=== PATIENT | male | born 1935 | race Caucasian/White ===

== ENCOUNTER 2018-08-24 08:34 | Day surgery (SDC) | payer MEDICARE ==
[2018-08-24] MEDS ORDERED: Sodium Chloride 0.9% 1,000 ML IV SCH (09:00)
[2018-08-24] MEDS ORDERED: Midazolam 1 MG/ML 2 ML SDV ONE (09:28)
[2018-08-24] MEDS ORDERED: Propofol 200 MG/20 ML SDV ONE (09:28)
[2018-08-24] MEDS ORDERED: fentaNYL 100 MCG/2 ML SDV ONE (09:28)
[2018-08-24] MEDS ORDERED: ceFAZolin 2 GM in Premix Bag 1 BAG IV ONE (09:30)
[2018-08-24 13:43] VITALS: BP 129/68
--- NOTE | 2018-08-31 09:01 | OR ---
DATE OF PROCEDURE: 08/24/2018 SURGEON: Mik Plaza MD PROCEDURE: Colonoscopy. FINDINGS: Descending colon polyp, approximately 8 mm, completely removed using snare. COMPLICATIONS: None. SCALEMAN: None. ANESTHETIC: MAC. PREOPERATIVE DIAGNOSIS: Screening colonoscopy. POSTOPERATIVE DIAGNOSIS: Screening colonoscopy. RISKS: Risks, benefits, alternatives, and limitations including, but not limited to infection, bleeding, and perforation were explained to the patient and wished to proceed. PROCEDURE IN DETAIL: The patient was placed in left lateral decubitus position. Digital rectal exam was performed without abnormality. Scope was introduced and advanced atraumatically to ileocecal valve. A photo was taken. Scope was brought back through the ascending, transverse, descending colon, and retroflexed. The aforementioned polyp was identified and completely removed. No abnormalities on retroflexion. The patient tolerated the procedure well. Mik Plaza MD /[id number]
== END 2018-08-24 11:35 | disposition home or self-care (01) ==
LOC: JP.SDS 08:34
PROVIDERS: ATTEND Surgery
DX: Z12.11 Encounter for screening for malignant neoplasm of colon (principal); K52.9 Noninfective gastroenteritis and colitis, unspecified; K63.89 Other specified diseases of intestine; I10 Essential (primary) hypertension; I25.10 Atherosclerotic heart disease of native coronary artery without angina pectoris; G47.33 Obstructive sleep apnea (adult) (pediatric); Z99.89 Dependence on other enabling machines and devices; Z95.0 Presence of cardiac pacemaker
CPT/HCPCS: 45385; 88305; J0690; J2250; J2704; J3010; J7030

== ENCOUNTER 2023-10-02 10:01 | Emergency (ER) | payer MEDICARE ==
[2023-10-02 10:14] VITALS: BP 127/61; PULSE 66
== END 2023-10-02 11:42 | disposition home or self-care (01) ==
LOC: JP.ED 10:01
DX: U07.1 COVID-19 (principal); E03.9 Hypothyroidism, unspecified; I10 Essential (primary) hypertension; I48.91 Unspecified atrial fibrillation; Z95.0 Presence of cardiac pacemaker; Z79.01 Long term (current) use of anticoagulants; Z79.899 Other long term (current) drug therapy; Z88.8 Allergy status to other drugs, medicaments and biological substances
CPT/HCPCS: 99283

== ENCOUNTER 2024-06-22 09:23 | Day surgery (SDC) | payer MEDICARE ==
[~2024-06-22 09:23] MED LIST: Dexamethasone 4 MG/ML SDV ONE; Glycopyrrolate 0.2 MG/ML 5 ML MDV ONE; Neostigmine Methylsulfate 10 MG/10 ML MDV ONE; Ondansetron 4 MG/2 ML SDV ONE; Propofol 200 MG/20 ML SDV ONE; Rocuronium 50 MG/5 ML Vial ONE; Succinylcholine 200 MG/10 ML MDV ONE; fentaNYL 250 MCG/5 ML SDV ONE
[2024-06-22] MEDS ORDERED: fentaNYL 100 MCG/2 ML SDV ONE ×2 (10:06→10:48)
[2024-06-22] MEDS ORDERED: Midazolam 1 MG/ML 2 ML SDV ONE (10:06)
[2024-06-22] MEDS ORDERED: Propofol 200 MG/20 ML SDV ONE (10:06)
[2024-06-22] MEDS: Metoprolol Tartrate 50 MG Tab PO STA (10:10)
[2024-06-22] MEDS: Lactated Ringers 1,000 ML IV SCH (10:13)
[2024-06-22] MEDS: metroNIDAZOLE/Normal Saline 500 MG in Premix Bag 1 BAG IV ONE (10:14)
[2024-06-22] MEDS ORDERED: Rocuronium 50 MG/5 ML Vial ONE (10:48)
[2024-06-22] MEDS: Bupivacaine 0.5%/EPINEPHrine 1:200,000 50 ML MDV ONE (10:50)
[2024-06-22] MEDS: ceFAZolin 2 GM in Premix Bag 1 BAG IV ONE (11:14)
[2024-06-22] MEDS ORDERED: Lactated Ringers 1,000 ML ONE (11:23)
[2024-06-22 14:36] VITALS: BP 120/60; PULSE 61
== END 2024-06-22 15:10 | disposition home or self-care (01) ==
LOC: JP.SDS 09:23
PROVIDERS: ATTEND Surgery
DX: K40.30 Unilateral inguinal hernia, with obstruction, without gangrene, not specified as recurrent (principal); I11.0 Hypertensive heart disease with heart failure; I50.22 Chronic systolic (congestive) heart failure; I25.10 Atherosclerotic heart disease of native coronary artery without angina pectoris; Z95.1 Presence of aortocoronary bypass graft; G47.33 Obstructive sleep apnea (adult) (pediatric)
CPT/HCPCS: 49650; A9270; C1781; J0171; J0330; J0690; J1100; J1596; J1836; J2250; J2405; J2704; J2710; J2795; J3010; J3490; J7120